=== PATIENT | female | born 1950 | race Caucasian/White ===

== ENCOUNTER 2016-05-08 10:19 | Emergency (ER) | payer OTHER ==
[~2016-05-08] VITALS: Ht 160 cm; Wt 91.6 kg
[2016-05-08] MEDS ORDERED: METHYLPREDNISOLO4 M1 PO (10:37)
[2016-05-08] MEDS ORDERED: CYMBALTA60 MG PO (10:37)
[2016-05-08] MEDS ORDERED: KLOR-CON SPRIN10 MEQ PO (10:37)
[2016-05-08] MEDS ORDERED: FLUOROMETHOLONE15 ML OP (10:37)
[2016-05-08] MEDS ORDERED: AMITRIPTYLINE H50 M2 PO (10:37)
[2016-05-08] MEDS ORDERED: LASIX 40 MG TAB40 M2 PO (10:37)
[2016-05-08] MEDS ORDERED: AMLODIPINE BESY10 MG PO (10:37)
[2016-05-08] MEDS ORDERED: CARBAMAZEPINE200 MG PO (10:38)
[2016-05-08] MEDS ORDERED: ATENOLOL 50MG T50 M1 PO (10:38)
[2016-05-08] MEDS ORDERED: LIPITOR 20 MG T20 M1 PO (10:38)
[2016-05-08] MEDS ORDERED: ALENDRONATE SOD70 MG PO (10:38)
[2016-05-08] MEDS ORDERED: CLONAZEPAM 0.50.5 M1 PO (10:38)
[2016-05-08] MEDS ORDERED: SINGULAIR 10 MG10 M1 PO (10:38)
[2016-05-08] MEDS ORDERED: ALDACTONE25 MG PO (10:38)
[2016-05-08] MEDS ORDERED: CLONIDINE HCL0.1 MG PO (10:38)
[2016-05-08] MEDS ORDERED: CARBAMAZEPINE200 M5 PO (10:39)
[2016-05-08] MEDS ORDERED: NAPROSYN500 MG PO (11:34)
[2016-05-08 11:46] VITALS: BP 158/66
== END 2016-05-08 11:47 | disposition home or self-care (01) ==
LOC: ER 10:19
DX: S29.011A Strain of muscle and tendon of front wall of thorax, initial encounter (principal); I10 Essential (primary) hypertension; Z88.2 Allergy status to sulfonamides; W01.0XXA Fall on same level from slipping, tripping and stumbling without subsequent striking against object, initial encounter; Y93.01 Activity, walking, marching and hiking; Y92.009 Unspecified place in unspecified non-institutional (private) residence as the place of occurrence of the external cause; Y99.9 Unspecified external cause status

== ENCOUNTER → 2016-05-17 | Outpatient (CLI) | payer OTHER, BC ==
[~2016-05-17] MED LIST: ALDACTONE25 MG PO; ALENDRONATE SOD70 MG PO; AMITRIPTYLINE H50 M2 PO; AMLODIPINE BESY10 MG PO; ATENOLOL 50MG T50 M1 PO; CARBAMAZEPINE200 M5 PO; CARBAMAZEPINE200 MG PO; CLONAZEPAM 0.50.5 M1 PO; CLONIDINE HCL0.1 MG PO; CYMBALTA60 MG PO; FLUOROMETHOLONE15 ML OP; KLOR-CON SPRIN10 MEQ PO; LASIX 40 MG TAB40 M2 PO; LIPITOR 20 MG T20 M1 PO; METHYLPREDNISOLO4 M1 PO; NAPROSYN500 MG PO; SINGULAIR 10 MG10 M1 PO
== END ==
LOC: SPEECH 05:24 → RAD 05:24
DX: R13.10 Dysphagia, unspecified (principal); K22.4 Dyskinesia of esophagus; K44.9 Diaphragmatic hernia without obstruction or gangrene; K21.9 Gastro-esophageal reflux disease without esophagitis

== ENCOUNTER → 2016-05-18 | Outpatient (CLI) | payer OTHER, BC | LOC: SPEECH 10:42 → RAD 10:42 | DX: R13.12 Dysphagia, oropharyngeal phase (principal); R09.89 Other specified symptoms and signs involving the circulatory and respiratory systems ==